=== PATIENT | female | born 1935 ===

== ENCOUNTER 2019-03-05 06:58 | Day surgery (SDC) | payer OTHER ==
[~2019-03-05 06:58] MED LIST: ASPIR-LOW81 MG PO; CALCIUM + D3 E1 EACH PO; CALTRATE 600+D1 EAC1 PO; CLINDAMYCIN HC150 MG PO; COZAAR25 MG; DICLOFENAC SODI50 MG PO; GLIMEPIRIDE1 MG; MEDROLPACK PO; METFORMIN HYDRO25 GM; NAPROXEN SODIU220 M2; OMEGA 3-6-9 11200 M1 PO; PAROXETINE HCL20 MG PO; PAXIL20 MG; PNEU16DI2; SIMVASTATIN1 GM; SINGULAIR10 MG PO; SYMBICORT 80/10.2 GM IH; ZOCOR PO
== END 2019-03-05 12:40 | disposition home or self-care (01) ==
LOC: CIR.AMB 06:58
DX: M65.842 Other synovitis and tenosynovitis, left hand (principal)